=== PATIENT | female | born 1955 | race African-American/Black ===

== ENCOUNTER 2016-11-02 16:08 | Emergency (ER) | payer MEDICARE, MEDICAID ==
[~2016-11-02] VITALS: Ht 167.6 cm; Wt 70.0 kg
[2016-11-02 16:11] VITALS: BP 110/63
== END 2016-11-02 19:00 | disposition left against medical advice (07) ==
LOC: ER 16:09
DX: R52 Pain, unspecified (principal); R05 Cough; Z53.21 Procedure and treatment not carried out due to patient leaving prior to being seen by health care provider

== ENCOUNTER 2024-05-19 13:47 | Emergency (ER) | payer MEDICARE, MEDICAID ==
[~2024-05-19] VITALS: Ht 167.6 cm; Wt 70.0 kg
[2024-05-19 13:55] VITALS: O2SAT 98
[2024-05-19] MEDS: HYDROCODONE/ACETAMINOPHEN 5/325MG TABLET PO STA (16:26)
[2024-05-19] MEDS: FLUORESCEIN SODIUM 1MG/STRIP RIGHTEYE ONE (16:27)
[2024-05-19] MEDS: TETRACAINE 0.5% OPHTH DROPS 4ML RIGHTEYE ONE (16:27)
[2024-05-19] MEDS ORDERED: NAPR-681 PO (19:47)
[2024-05-19 20:00] VITALS: BP 133/65; PULSE 74; RESP 16; TEMP 36.66960; O2SAT 100
[2024-05-19] MEDS: BACITRACIN ZINC OINT UDPKT TOP ONE (20:23)
[2024-05-19] MEDS: LIDOCAINE HCL/PF 1% 10 MG/ML 5ML VIAL INFIL ONE (20:23)
[2024-05-22] MEDS ORDERED: METR-167 MT (13:17)
== END 2024-05-19 20:30 | disposition home or self-care (01) ==
LOC: ER 13:47
DX: S01.81XA Laceration without foreign body of other part of head, initial encounter (principal); Y04.0XXA Assault by unarmed brawl or fight, initial encounter; Y93.89 Activity, other specified; Y92.89 Other specified places as the place of occurrence of the external cause; Y99.8 Other external cause status
CPT/HCPCS: 99284; 12011; J3490; 70486

== ENCOUNTER 2024-08-10 00:45 | Emergency (ER) | payer MEDICARE, MEDICAID ==
[~2024-08-10] VITALS: Ht 157.5 cm; Wt 60.0 kg
[~2024-08-10 00:45] MED LIST: METR-167 MT; NAPR-681 PO
[2024-08-10 00:48] VITALS: TEMP 37.1; O2SAT 99
[2024-08-10] MEDS ORDERED: IPRATROPIUM BROMIDE (0.02%) 0.5MG/2.5ML NEB HHN STA (01:38)
[2024-08-10] MEDS ORDERED: ALBUTEROL (0.083%) 2.5MG/3ML NEB HHN STA (01:38)
[2024-08-10] MEDS: METHYLPREDNISOLONE SOD SUCC 125MG/2ML (ACT-O-VIAL) IV STA (01:52)
[2024-08-10] MEDS: MAGNESIUM 2 G PREMIX 50 ML IV ONE (01:53)
[2024-08-10 05:42] VITALS: BP 107/58; PULSE 65; RESP 10; O2SAT 100
[2024-08-10] MEDS ORDERED: PRED10TA23 MT (06:22)
[2024-08-10] MEDS ORDERED: ALBU90AE INH (06:22)
== END 2024-08-10 02:14 | disposition home or self-care (01) ==
LOC: ER 00:45
DX: J45.909 Unspecified asthma, uncomplicated (principal); Z98.890 Other specified postprocedural states
CPT/HCPCS: 99284; 96365; 71045; 96375; J2919; J3475; A4663